=== PATIENT | female | born 1940 | race Caucasian/White ===

== ENCOUNTER 2021-05-12 07:23 | Day surgery (SDC) | payer OTHER, SELFPAY ==
[~2021-05-12] VITALS: Ht 165.1 cm; Wt 83.0 kg
[~2021-05-12 07:23] MED LIST: CEFAZOLIN SOD 1 GM in D5W 50 ML IV ONE
[2021-05-12] MEDS ORDERED: WATER FOR IRRIGATION,STERILE 1,000 ML IRRIG.SOLN IR ONE (08:18)
[2021-05-12] MEDS ORDERED: fentaNYL CITRATE/PF 100 MCG/2 ML AMP IVP ONE (08:18)
[2021-05-12] MEDS ORDERED: LR 1,000 ML IV.SOLN IV ONE (08:18)
[2021-05-12] MEDS ORDERED: NS 1000 ML IV.SOLN IV ONE (08:18)
[2021-05-12] MEDS ORDERED: MIDAZOLAM HCL 5 MG/5 ML VIAL IVP ONE (08:18)
[2021-05-12] MEDS ORDERED: DESFLURANE 15 MIN GAS INH ONE (08:18)
[2021-05-12] MEDS ORDERED: HEPARIN SODIUM, PORCINE 10,000 UNITS/ 10 ML VIAL MC ONE (08:18)
[2021-05-12] MEDS ORDERED: SUGAMMADEX SODIUM 200 MG/2 ML VIAL IV ONE (08:18)
[2021-05-12] MEDS ORDERED: ONDANSETRON HCL 4 MG/2 ML VIAL IVP ONE (08:18)
[2021-05-12] MEDS ORDERED: PROPOFOL 200MG/ 20ML VIAL (DIPRIVAN) IV ONE (08:18)
[2021-05-12] MEDS ORDERED: NS IRRIG SOLN 1000 ML IR ONE (08:18)
[2021-05-12] MEDS ORDERED: NS 100 ML BAG IV ONE (08:18)
[2021-05-12] MEDS ORDERED: ROCURONIUM BROMIDE 10 MG/ML (ZEMURON) IV ONE (08:18)
[2021-05-12] MEDS ORDERED: BUPIVACAINE /EPINEPHRINE/PF 0.25% 30 ML VIAL INJ ONE (08:18)
[2021-05-12] MEDS ORDERED: HYDROmorphone 1 MG/ML INJ. CARTRIDGE IVP PRN ×3 (09:00)
[2021-05-12] MEDS ORDERED: hydrALAZINE HCL 20 MG/ML VIAL IVP PRN (09:00)
[2021-05-12] MEDS ORDERED: METOCLOPRAMIDE HCL 10 MG/2 ML VIAL IVP PRN (09:00)
[2021-05-12] MEDS ORDERED: MIDAZOLAM HCL 2 MG/2 ML VIAL (VERSED) IVP PRN (09:00)
[2021-05-12] MEDS ORDERED: LABETALOL 100 MG/ 20ML VIAL IVP PRN (09:00)
[2021-05-12] MEDS ORDERED: LR 1,000 ML IV SCH (09:00)
[2021-05-12] MEDS ORDERED: MEPERIDINE HCL/PF 25 MG/ML DISP.SYRIN IVP PRN (09:00)
[2021-05-12] MEDS ORDERED: D5/0.45 NS 1,000 ML IV SCH (09:45)
[2021-05-12 11:40] VITALS: BP_SYST 113
== END 2021-05-12 11:46 | disposition home or self-care (01) ==
LOC: SDS 07:23 → SMU 07:24 → SDS 11:46
PROVIDERS: ATTEND Colon & Rectal Surgery
DX: C50.911 Malignant neoplasm of unspecified site of right female breast (principal); I10 Essential (primary) hypertension; E11.9 Type 2 diabetes mellitus without complications; M19.90 Unspecified osteoarthritis, unspecified site; E66.9 Obesity, unspecified; Z86.73 Personal history of transient ischemic attack (TIA), and cerebral infarction without residual deficits; Z79.4 Long term (current) use of insulin; Z79.82 Long term (current) use of aspirin; Z79.899 Other long term (current) drug therapy; Z20.822 Contact with and (suspected) exposure to COVID-19
CPT/HCPCS: 36556; 71045; 77001; 82948; 82962; C1788; C1894; C9399; J0690; J1644; J2250; J2405; J2704; J3010; J3490; J7030; J7060; J7120; U0003; 76000

== ENCOUNTER 2021-09-22 07:04 | Day surgery (SDC) | payer OTHER, SELFPAY ==
[~2021-09-22] VITALS: Ht 165.1 cm; Wt 73.9 kg
[2021-09-22] MEDS ORDERED: CEFAZOLIN SOD 1 GM in D5W 50 ML IV ONE (08:30)
[2021-09-22] MEDS ORDERED: ISOSULFAN BLUE 5 ML VIAL (LYMPHAZURIN) INJ ONE (12:15)
[2021-09-22] MEDS ORDERED: SEVOFLURANE 15 MIN GAS INH ONE (12:15)
[2021-09-22] MEDS ORDERED: LR 1,000 ML IV.SOLN IV ONE (12:15)
[2021-09-22] MEDS ORDERED: ONDANSETRON HCL 4 MG/2 ML VIAL IVP ONE (12:15)
[2021-09-22] MEDS ORDERED: PROPOFOL 200MG/ 20ML VIAL (DIPRIVAN) IV ONE (12:15)
[2021-09-22] MEDS ORDERED: KETOROLAC TROMETHAMINE 30 MG VIAL IVP ONE (12:15)
[2021-09-22] MEDS ORDERED: NS IRRIG SOLN 1000 ML IR ONE (12:15)
[2021-09-22] MEDS ORDERED: BUPIVACAINE /PF 0.25% 30 ML VIAL INJ ONE (12:15)
[2021-09-22] MEDS ORDERED: NS 50 ML BAG IV ONE (12:15)
[2021-09-22] MEDS ORDERED: KETOROLAC TROMETHAMINE 30 MG VIAL IVP PRN (13:15)
[2021-09-22] MEDS ORDERED: IBUPROFEN 400 MG TABLET PO ONE (13:15)
[2021-09-22] MEDS ORDERED: hydrALAZINE HCL 20 MG/ML VIAL IVP PRN (13:15)
[2021-09-22] MEDS ORDERED: ONDANSETRON HCL 4 MG/2 ML VIAL IVP PRN (13:15)
[2021-09-22] MEDS ORDERED: HYDROcodone/ACETAMIN 5-325 MG TAB (NORCO/ VICODIN) PO PRN ×2 (14:00)
[2021-09-22] MEDS ORDERED: D5/0.45 NS 1,000 ML IV SCH (14:00)
[2021-09-22] MEDS ORDERED: KETOROLAC TROMETHAMINE 30 MG VIAL ONE (14:24)
[2021-09-22] MEDS ORDERED: HYDROmorphone 1 MG/ML INJ. CARTRIDGE ONE ×2 (14:40→15:07)
[2021-09-22] MEDS: HYDROmorphone 1 MG/ML INJ. CARTRIDGE IVP PRN ×3 (14:40→15:10)
[2021-09-22 17:53] VITALS: BP_SYST 151
== END 2021-09-22 17:30 | disposition home or self-care (01) ==
LOC: SDS 07:04 → EDSTATUS 09-23 12:00
PROVIDERS: ATTEND Colon & Rectal Surgery
DX: C50.911 Malignant neoplasm of unspecified site of right female breast (principal); I10 Essential (primary) hypertension; E11.9 Type 2 diabetes mellitus without complications; E03.9 Hypothyroidism, unspecified; Z88.5 Allergy status to narcotic agent; E66.01 Morbid (severe) obesity due to excess calories; F32.9 Major depressive disorder, single episode, unspecified; M81.0 Age-related osteoporosis without current pathological fracture; Z88.8 Allergy status to other drugs, medicaments and biological substances; E78.00 Pure hypercholesterolemia, unspecified; Z90.89 Acquired absence of other organs; Z90.49 Acquired absence of other specified parts of digestive tract; Z98.890 Other specified postprocedural states; Z20.822 Contact with and (suspected) exposure to COVID-19
CPT/HCPCS: 19301; 36415; 38525; 78195; 82962; 87426; 88307; A9541; J0690; J1170; J1885; J2405; J2704; J3490; J7060; J7120; Q9968; U0003; 88305

== ENCOUNTER 2022-06-09 13:55 | Inpatient (IN) | payer OTHER ==
[~2022-06-09] VITALS: Ht 165.1 cm; Wt 65.8 kg
--- NOTE | 2022-06-09 14:00 | NUR ---
Patient to ER bed 6 to gown for evaluation. Side rails up. Report given to Jiemna LEWIS.
[2022-06-09 14:12] VITALS: BP_SYST 117
--- NOTE | 2022-06-09 14:12 | NUR ---
ER Dr. Danielson at bedside examining patient.
--- NOTE | 2022-06-09 14:17 | NUR ---
Pt came in from home c/o hemoptysis occurring yesterday. Pt states she experienced a fall with impact to her chest one day prior. Yesterday she coughed and the ball of phlegm was filled with blood. Pt has hx of DM2 and htn. Pt is A&Ox4, calm and cooperative. Care to be provided as ordered.
[2022-06-09] MEDS ORDERED: MORPHINE 4 MG INJ. 4 MG/ML VIAL IVP ONE (14:34)
[2022-06-09] MEDS ORDERED: NITROGLYCERIN 1 INCH (GM) OINT. TP ONE (14:34)
[2022-06-09 15:07] LABS: BASOPHILS # (AUTO) 0.2 K/uL (0.0-0.2); BASOPHILS % (AUTO) 0.8 % (0.0-2.0); EOSINOPHILS # (AUTO) 1.2 K/uL (0.0-0.4); EOSINOPHILS % (AUTO) 5.3 % (0.0-4.0); HEMATOCRIT 24.6 % (36-48); HEMOGLOBIN 8.3 g/dL (12.0-16.0); LYMPHOCYTES # (AUTO) 1.7 K/uL (1.0-5.5); LYMPHOCYTES % (AUTO) 7.6 % (20.5-51.5); MEAN CORPUSCULAR HEMOGLOBIN 28 pg (27-31); MEAN CORPUSCULAR HGB CONC 34 % (32-36); MEAN CORPUSCULAR VOLUME 84 fL (79.0-98.0); MONOCYTES # (AUTO) 1.2 K/uL (0.0-1.0); MONOCYTES % (AUTO) 5.6 % (1.7-9.3); NEUTROPHILS # (AUTO) 17.9 K/uL (1.8-7.7); NEUTROPHILS % (AUTO) 80.7 % (40.0-70.0); PLATELET COUNT (AUTO) 302 K/uL (130-430); RED BLOOD CELL COUNT(AUTO) 2.93 MIL/uL (4.2-6.2); RED CELL DISTRIBUTION WIDTH 14.1 % (9.0-15.0); WHITE BLOOD COUNT (AUTO) 22.2 K/uL (4.8-10.8)
--- NOTE | 2022-06-09 15:21 | NUR ---
report received from JOSHUA Bruce for continuation of care.
[2022-06-09 15:26] LABS: ANION GAP 8 (5-15); CALCIUM 8.3 mg/dL (8.4-11.0); CHLORIDE 102 mmol/L (98-107); CREATININE 1.04 mg/dL (0.55-1.30); GLUCOSE 199 mg/dL (70-99); POTASSIUM 4.5 mmol/L (3.5-5.1); UREA NITROGEN, BLOOD 21 mg/dL (8-21)
[2022-06-09 15:33] LABS: ALANINE AMINOTRANSFERASE 13 U/L (12-78); ALBUMIN 2.3 g/dL (3.4-4.8); ASPARTATE AMINOTRANSFERASE 10 U/L (10-37); TOTAL BILIRUBIN 0.5 mg/dL (0.0-1.0)
--- NOTE | 2022-06-09 15:35 | NUR ---
ct consent obtained by patient and placed in chart
[2022-06-09] MEDS ORDERED: iohexoL 350 mgI/mL, 100 ML INFUS..BTL IV ONE (15:54)
--- NOTE | 2022-06-09 15:54 | NUR ---
Patient transported to radiology via gurney, accompanied by Elena Jacobo tech
--- NOTE | 2022-06-09 16:10 | NUR ---
returned from ct scan. no acute distress noted at this time.
--- NOTE | 2022-06-09 17:12 | NUR ---
notified of patient sepsis risk
[2022-06-09] MEDS ORDERED: PLE5 PO (18:12)
[2022-06-09] MEDS ORDERED: CLOP75TA2 PO (18:12)
[2022-06-09] MEDS ORDERED: LEVO150C4 (18:12)
[2022-06-09] MEDS ORDERED: ESCI20TA PO (18:12)
[2022-06-09] MEDS ORDERED: CETI5TAB6 (18:12)
[2022-06-09] MEDS ORDERED: METF-518 (18:12)
[2022-06-09] MEDS ORDERED: OLME40TA70 (18:12)
--- NOTE | 2022-06-09 18:18 | NUR ---
Medication reconciliation completed with information provided by PATIENT. Any prior medication reconciliation on file was reviewed and corrected.
[2022-06-09] MEDS ORDERED: ONDANSETRON HCL 4 MG/2 ML VIAL IVP PRN (18:30)
--- NOTE | 2022-06-09 18:48 | NUR ---
Admit bed requested Patient will be admitted to care of . Admitted to MED SURG OBS unit. Diagnosis PAIN OUT OF CONTROLL RULE OUT METASTASIS Inpatient (Yes or No) N Observation (Yes or No) Y Orientation concerns or request close to nursing station (Yes or No) N Covid Status PENDING On vent or bipap N Isolation requirements N Needs a sitter N From Home (Yes or if No enter name of facility) Y Requires Dialysis (Yes or No) N Med Rec Completed (Yes of No) Y
--- NOTE | 2022-06-09 19:08 | NUR ---
Received report from JOSHUA Andrade; assuming care of patient at this time.
--- NOTE | 2022-06-09 19:08 | NUR ---
REPORT GIVEN TO JOSHUA PARK FOR CONTINUITY OF CARE
--- NOTE | 2022-06-09 19:15 | NUR ---
Patient A/Ox4, VSS, resp even and unlabored. Patient resting in bed with side rails raised. Patient's family at bedside. Nad noted at this time.
[2022-06-09 19:54] LABS: BILIRUBIN,URINE NEGATIVE (NEGATIVE); BLOOD, URINE NEGATIVE (NEGATIVE); CLARITY/URINE CLEAR (CLEAR); COLOR,URINE YELLOW (YELLOW); GLUCOSE,URINE NEGATIVE (NEGATIVE); KETONES,URINE NEGATIVE (NEGATIVE); LEUKOCYTE ESTERASE ,URINE NEGATIVE (NEGATIVE); NITRITE, URINE NEGATIVE (NEGATIVE); PROTEIN URINE NEGATIVE (NEGATIVE)
--- NOTE | 2022-06-09 20:30 | NUR ---
Patient will be admitted to care of [facility]. Admitted to med surg unit. Will go to room 104A. Belongings list completed. Complete and up to date summary report printed. SBAR report given to JOSHUA Miranda at bedside with opportunity for questions.
--- NOTE | 2022-06-09 22:00 | NUR ---
Admission Note Received patient from ER with diagnosis of PAIN, UNCONTROLLED, RULE OUT METASTASIS . Initial Plan of Care discussed-patient verbalized understanding. Family at bedside. Oriented to room, call light, pain management and safety.
[2022-06-09] MEDS: MORPHINE 2 MG/ML INJ. SYRINGE IVP PRN (22:02)
[2022-06-09 22:08] VITALS: BP_SYST 123
--- NOTE | 2022-06-10 01:14 | NUR ---
CONSULTATION PAGED/CALLED Reason for Consultation: POSSIBLE METASTASIS TO LUNG Person Who was Notified:MUKUL Consulting Physician: HARJINDER Bacon De Rinder Specialty: Ordering Physician: JORJE MORENO
[2022-06-10] MEDS: MORPHINE 2 MG/ML INJ. SYRINGE IVP PRN ×2 (03:03→15:32)
[2022-06-10] MEDS: INSULIN REGULAR, HUMAN 100 UNITS/ML, 3 ML VIAL (humuLIN R) SUBCUT PRN ×3 (06:08→21:28)
--- NOTE | 2022-06-10 07:19 | NUR ---
CLOSING NOTES Patient resting in bed - no s/s pain or distress noted. Respirations even and unlabored - head of bed elevated. IV site patent - no s/s redness, infection, or infiltration. Bed locked and in lowest position, call light within reach.
--- NOTE | 2022-06-10 07:40 | NUR ---
INITIAL ROUNDS Received pt AAOx4, no s/s resp distress, c/o mild pain-declines pain medication at this time, will continue to monitor. Pt's son and granddaughter at bedside. Pt slightly hard of hearing-able to communicate. Plan of care for the day reviewed with pt and family-pt and son verbalized their understanding. Pain management, skin and safety discussed-teach back done. Side rails up x3, bed alarm on, room across from nursing station for safety. Call light within reach.
[2022-06-10 08:25] VITALS: BP_SYST 102
[2022-06-10 08:48] VITALS: BP_SYST 99
[2022-06-10] MEDS: LOSARTAN POTASSIUM 50 MG TABLET (COZAAR) PO SCH (08:51)
[2022-06-10] MEDS: amLODIPine BESYLATE 5 MG TABLET PO SCH (08:51)
[2022-06-10] MEDS: CITALOPRAM HYDROBROMIDE 20 MG TABLET PO SCH (08:51)
[2022-06-10] MEDS: CLOPIDOGREL BISULFATE 75 MG TABLET PO SCH (08:51)
[2022-06-10] MEDS: PIPERACILLIN/TAZO 3.375/DEX-IS 50 ML IV SCH ×3 (08:52→19:09)
--- NOTE | 2022-06-10 08:55 | NUR ---
IV ADMINISTRATION END TIME (Observation Patients ONLY): IV infusion of Zosyn IVPB started at 851 and ended at 921.
[2022-06-10] MEDS ORDERED: ESCITALOPRAM OXALATE 10 MG TABLET PO SCH (09:00)
[2022-06-10] MEDS ORDERED: FELODIPINE 5 MG TAB.SR.24H (PLENDIL) PO SCH (09:00)
[2022-06-10] MEDS ORDERED: OLMESARTAN MEDOXOMIL 20 MG TABLET PO SCH (09:00)
[2022-06-10] MEDS ORDERED: ACETAMINOPHEN 325 MG TABLET PO PRN (11:00)
[2022-06-10 11:41] VITALS: BP_SYST 93
[2022-06-10] MEDS: HYDROcodone/ACETAMIN 5-325 MG TAB (NORCO/ VICODIN) PO PRN (11:41)
--- NOTE | 2022-06-10 15:15 | NUR ---
HEMATOLOGY CONSULT SPOKE TO JAVIER OFFICE OF DR WALKER AND MADE AWARE OF CONSULT RE BREAST CA,
[2022-06-10 15:24] VITALS: BP_SYST 101
--- NOTE | 2022-06-10 15:52 | NUR ---
IV ADMINISTRATION END TIME (Observation Patients ONLY): IV infusion of Zosyn IVPB started at 1522 and ended at 1552.
--- NOTE | 2022-06-10 19:15 | NUR ---
OPENING NOTES Patient resting in bed - no s/s pain or distress noted. Respirations even and unlabored - head of bed elevated. IV site patent - no s/s pain or distress noted. Respirations even and unlabored - head of bed elevated.
--- NOTE | 2022-06-10 19:30 | NUR ---
CLOSING NOTE Pt sitting up in bed visiting with her daughter, no s/s resp distress, no c/o pain or discomfort. IVPB infusing well at ordered rate with no s/s infiltration to site. Endorsed care to Trey LEWIS. All precautions remain in place. Call light within reach.
[2022-06-10 20:00] VITALS: BP_SYST 120
[2022-06-11] VITALS: BP_SYST 108; BP_SYST 148
[2022-06-11] MEDS: PIPERACILLIN/TAZO 3.375/DEX-IS 50 ML IV SCH ×5 (00:10→23:30)
[2022-06-11] MEDS: INSULIN REGULAR, HUMAN 100 UNITS/ML, 3 ML VIAL (humuLIN R) SUBCUT PRN ×3 (06:59→20:11)
[2022-06-11 07:12] LABS: BASOPHILS # (AUTO) 0.2 K/uL (0.0-0.2); BASOPHILS % (AUTO) 1.3 % (0.0-2.0); EOSINOPHILS # (AUTO) 1.5 K/uL (0.0-0.4); EOSINOPHILS % (AUTO) 8.2 % (0.0-4.0); HEMATOCRIT 24.3 % (36-48); HEMOGLOBIN 8.3 g/dL (12.0-16.0); LYMPHOCYTES # (AUTO) 2.2 K/uL (1.0-5.5); LYMPHOCYTES % (AUTO) 12.2 % (20.5-51.5); MEAN CORPUSCULAR HEMOGLOBIN 29 pg (27-31); MEAN CORPUSCULAR HGB CONC 34 % (32-36); MEAN CORPUSCULAR VOLUME 83 fL (79.0-98.0); MONOCYTES # (AUTO) 1.1 K/uL (0.0-1.0); MONOCYTES % (AUTO) 5.8 % (1.7-9.3); NEUTROPHILS # (AUTO) 13.2 K/uL (1.8-7.7); NEUTROPHILS % (AUTO) 72.5 % (40.0-70.0); PLATELET COUNT (AUTO) 331 K/uL (130-430); RED BLOOD CELL COUNT(AUTO) 2.92 MIL/uL (4.2-6.2); RED CELL DISTRIBUTION WIDTH 14.4 % (9.0-15.0); WHITE BLOOD COUNT (AUTO) 18.2 K/uL (4.8-10.8)
--- NOTE | 2022-06-11 07:20 | NUR ---
receive the patient from the date night sitter rn for in a stable condition . with admitting diagnosis of uncontrolled chest pain . no complain of pain at this time . no sign and symptoms of respiratory distress at this time . will continue to monitor
[2022-06-11 07:36] LABS: ANION GAP 7 (5-15); CALCIUM 8.4 mg/dL (8.4-11.0); CHLORIDE 104 mmol/L (98-107); CREATININE 1.09 mg/dL (0.55-1.30); GLUCOSE 156 mg/dL (70-99); POTASSIUM 4.5 mmol/L (3.5-5.1); UREA NITROGEN, BLOOD 11 mg/dL (8-21)
[2022-06-11 08:00] VITALS: BP_SYST 108
[2022-06-11] MEDS ORDERED: DIATR MEGLU/DIATRIZ SOD 30 ML SOLUTION PO ONE (08:27)
[2022-06-11] MEDS: CITALOPRAM HYDROBROMIDE 20 MG TABLET PO SCH (09:41)
[2022-06-11] MEDS: LOSARTAN POTASSIUM 50 MG TABLET (COZAAR) PO SCH (09:42)
[2022-06-11] MEDS: CLOPIDOGREL BISULFATE 75 MG TABLET PO SCH (09:42)
[2022-06-11] MEDS: amLODIPine BESYLATE 5 MG TABLET PO SCH (09:47)
[2022-06-11] MEDS: MORPHINE 2 MG/ML INJ. SYRINGE IVP PRN ×2 (09:52→18:03)
--- NOTE | 2022-06-11 18:40 | NUR ---
go complain of pain at this time . morphine sulfate was given 2 mg q4 ivp . will continue to monitor
--- NOTE | 2022-06-11 19:10 | NUR ---
Received report from AM shift RN, and assumed patient care.
--- NOTE | 2022-06-11 19:20 | NUR ---
will endorse to shift commander rn for continuity of care
[2022-06-11] MEDS: IPRATROPIUM/ALBUTEROL SULFATE 3 ML AMPUL.NEB (DUONEB) INH SCH ×2 (19:48→23:19)
[2022-06-11 20:00] VITALS: BP_SYST 107
--- NOTE | 2022-06-11 21:07 | NUR ---
Patient's call light is within reach, bed is in lowest position. Educated the patient about the plan of care for tonight, patient understood teaching and will reinforce education if needed throughout the shift.
--- NOTE | 2022-06-12 00:15 | NUR ---
Patient is currently in bed with call light within reach, and bed at the lowest position. No complications noted at the moment, will reinforce if needed throughout the shift.
[2022-06-12 00:44] VITALS: BP_SYST 103
[2022-06-12] MEDS: IPRATROPIUM/ALBUTEROL SULFATE 3 ML AMPUL.NEB (DUONEB) INH SCH ×6 (03:40→23:48)
--- NOTE | 2022-06-12 04:00 | NUR ---
Patient is currently in bed asleep, no complications noted at the moment, call light is within reach, and bed is in lowest position. Will reinforce if needed throughout the shift.
[2022-06-12] MEDS: PIPERACILLIN/TAZO 3.375/DEX-IS 50 ML IV SCH ×4 (05:10→23:32)
[2022-06-12] MEDS: INSULIN REGULAR, HUMAN 100 UNITS/ML, 3 ML VIAL (humuLIN R) SUBCUT PRN ×4 (06:49→20:31)
[2022-06-12 07:00] VITALS: BP_SYST 102
--- NOTE | 2022-06-12 07:20 | NUR ---
receive the shift mgr jonathan Velazquez in a stable condition with admitting diagnosis of uncontrollable chest pain aox4 sao tomean speaking . no sign and symptoms of respiratory distress . no complain of pain at this time . will continue to monitor
[2022-06-12 08:04] LABS: TOTAL IRON BIND. CAPACITY 135 ug/dL (250-450)
[2022-06-12] MEDS: CITALOPRAM HYDROBROMIDE 20 MG TABLET PO SCH (08:51)
[2022-06-12] MEDS: amLODIPine BESYLATE 5 MG TABLET PO SCH (08:52)
[2022-06-12] MEDS: LOSARTAN POTASSIUM 50 MG TABLET (COZAAR) PO SCH (08:52)
[2022-06-12] MEDS: CLOPIDOGREL BISULFATE 75 MG TABLET PO SCH (08:52)
[2022-06-12] MEDS: HYDROcodone/ACETAMIN 5-325 MG TAB (NORCO/ VICODIN) PO PRN ×2 (08:53→15:21)
--- NOTE | 2022-06-12 10:45 | NUR ---
oncology md made some rounds , md planning to have biopsy outpatient
[2022-06-12] MEDS ORDERED: MORPHINE 2 MG/ML INJ. SYRINGE IVP PRN (11:00)
[2022-06-12] MEDS ORDERED: NALOXONE HCL 0.4 MG/ML AMP (NARCAN) IVP PRN (11:00)
[2022-06-12 11:35] VITALS: BP_SYST 102
--- NOTE | 2022-06-12 11:45 | NUR ---
md partida made rounds .will probably discharge for tomorrow
[2022-06-12 16:43] VITALS: BP_SYST 114
--- NOTE | 2022-06-12 18:50 | NUR ---
will endorse to notcher rn for continuity of care
--- NOTE | 2022-06-12 19:20 | NUR ---
Received report from AM shift RN, and assumed patient care.
[2022-06-12 20:00] VITALS: BP_SYST 115
--- NOTE | 2022-06-13 | NUR ---
Patient is in bed asleep, patient's call light is within reach, and bed is in lowest position. No additional complications noted at the moment, will reinforce if needed throughout the shift.
[2022-06-13 00:27] VITALS: BP_SYST 113
[2022-06-13] MEDS: IPRATROPIUM/ALBUTEROL SULFATE 3 ML AMPUL.NEB (DUONEB) INH SCH ×5 (03:00→19:53)
[2022-06-13] MEDS: PIPERACILLIN/TAZO 3.375/DEX-IS 50 ML IV SCH ×2 (05:08→12:00)
[2022-06-13] MEDS: INSULIN REGULAR, HUMAN 100 UNITS/ML, 3 ML VIAL (humuLIN R) SUBCUT PRN (06:08)
[2022-06-13] MEDS ORDERED: LEVOTHYROXINE SODIUM 0.15 MG TABLET PO SCH (07:00)
[2022-06-13] MEDS: LOSARTAN POTASSIUM 50 MG TABLET (COZAAR) PO SCH (08:56)
[2022-06-13] MEDS: CITALOPRAM HYDROBROMIDE 20 MG TABLET PO SCH (08:56)
[2022-06-13] MEDS: amLODIPine BESYLATE 5 MG TABLET PO SCH (08:57)
[2022-06-13] MEDS: CLOPIDOGREL BISULFATE 75 MG TABLET PO SCH (08:58)
[2022-06-13 11:26] VITALS: BP_SYST 103
[2022-06-13 15:27] VITALS: BP_SYST 107
[2022-06-13] MEDS ORDERED: OLME20TA23 PO (15:40)
[2022-06-13] MEDS ORDERED: AUG875 PO (15:43)
[2022-06-13] MEDS ORDERED: HYDR-3919 PO (15:46)
[2022-06-13 17:46] VITALS: BP_SYST 107
--- NOTE | 2022-06-13 19:10 | NUR ---
Received report from AM shift RN, and assumed patient care.
[2022-06-13] MEDS ORDERED: HYDR-3917 PO ×3 (20:05→20:36)
--- NOTE | 2022-06-13 20:15 | NUR ---
Patient refused medications, and insulin at the moment due to patient will be going and patient is OK with not taking any medications. Will reinforce if needed throughout the shift. Dr. Ceron is aware of patient refusing medications, and is OK with MD. is still working on the paperworks.
[2022-06-13] MEDS ORDERED: AMOXICILLIN/CLAVULANATE POTASSIUM 875 MG TABLET PO SCH (21:00)
--- NOTE | 2022-06-13 21:00 | NUR ---
Followed up with Dr. Ceron about the patient's discharge information, due to conflict occurring in the discharge packet. Per MD will fix information, MD is aware of patient's small red-phlegm post coughing, patient states she is OK and still wanting to be going home. Per MD, is OK with patient still going home to just follow up if patient starts having major blood clots in cough again to bring back to ED. No additional orders noted at the moment, will reinforce if needed throughout the shift.
--- NOTE | 2022-06-13 21:15 | NUR ---
Educated the patient about the discharge information, and patient had no questions noted at the moment. Will reinforce if needed throughout the shift.
--- NOTE | 2022-06-13 21:26 | NUR ---
Patient's IV was successfully removed, no other complications noted at the moment. Patient was successfully discharged home via wheelchair to outside of hospital, with family member at bedside. No other complications noted at the moment.
[2022-06-16 05:07] LABS: FOLATE (FOLIC ACID) 13.7 ng/mL (>3.0)
== END 2022-06-13 21:30 | disposition home or self-care (01) | DRG 871 ==
LOC: SED 13:55 → SMU 18:20 → OBSVTOIN 06-11 12:00
PROVIDERS: ADMIT Internal Medicine; ATTEND Internal Medicine
DX: A41.9 Sepsis, unspecified organism (principal); J18.9 Pneumonia, unspecified organism; R04.2 Hemoptysis; C78.00 Secondary malignant neoplasm of unspecified lung; E44.0 Moderate protein-calorie malnutrition; E78.5 Hyperlipidemia, unspecified; I10 Essential (primary) hypertension; E03.9 Hypothyroidism, unspecified; C50.912 Malignant neoplasm of unspecified site of left female breast; Z20.822 Contact with and (suspected) exposure to COVID-19; Z88.5 Allergy status to narcotic agent; Z88.8 Allergy status to other drugs, medicaments and biological substances; Z79.899 Other long term (current) drug therapy; Z90.49 Acquired absence of other specified parts of digestive tract
CPT/HCPCS: 36415; 71275; 76376; 80048; 80053; 81003; 82607; 82728; 82746; 82962; 83540; 83550; 83605; 83880; 84484; 85025; 85044; 85379; 87040; 93005; 94640; 94760; 96374; 99285; G0378; J1815; J2270; J2543; J7050; Q9964; Q9967